=== PATIENT | male | born 1945 | race Caucasian/White ===

== ENCOUNTER 2023-07-05 02:29 | Inpatient (IN) | payer MEDICARE, OTHER ==
[2023-07-05] VITALS (10 sets, daily range): BP systolic 137–163; BP diastolic 83–98; TEMP 97.3–98.4; O2SAT 94–99
[~2023-07-05] VITALS: Ht 157.5 cm; Wt 57.6 kg
[2023-07-05] MEDS ORDERED: methylPREDNISolone SOD SUCC 125 MG/2ML VIAL ONE (02:41)
[2023-07-05] MEDS: methylPREDNISolone SOD SUCC 125 MG/2ML VIAL IV ONE (02:46)
[2023-07-05] MEDS: ALBUTEROL FS 2.5 MG/3 ML VIAL.NEB NEB ONE (02:52)
[2023-07-05 02:57] LABS: BASOPHILS % (AUTO) 0.3 % (0.0-2.0); EOSINOPHILS # (AUTO) 0.1 K/uL (0.0-0.7); EOSINOPHILS % (AUTO) 2.5 % (0.0-6.0); HEMATOCRIT 42 % (39-51); HEMOGLOBIN 13.7 g/dL (13.5-17.5); LYMPHOCYTES % (AUTO) 49.3 % (20.0-44.0); MEAN CORPUSCULAR HEMOGLOBIN 30 PG (26.0-33.0); MEAN CORPUSCULAR HGB CONC 33 g/dl (31.0-36.0); MEAN CORPUSCULAR VOLUME 93 fL (80-96); MONOCYTES # (AUTO) 0.5 K/uL (0.1-1.30); MONOCYTES % (AUTO) 11.8 % (2.0-12.0); NEUTROPHILS # (AUTO) 1.5 K/uL (1.8-8.9); NEUTROPHILS % (AUTO) 36.1 % (43.0-81.0); PLATELET COUNT (AUTO) 201 K/uL (150-450); RED BLOOD CELL COUNT(AUTO) 4.52 MIL/uL (4.5-6.0); RED CELL DISTRIBUTION WIDTH 15.3 % (11.5-15.0)
[2023-07-05 03:17] LABS: LACTIC ACID 1.5 mmol/L (0.4-2.0)
[2023-07-05 03:22] LABS: ALBUMIN 3.5 g/dL (3.4-5.0); BILIRUBIN,TOTAL 0.4 mg/dL (0.2-1.0); CALCIUM, SERUM 8.5 mg/dL (8.5-10.1); CREATININE 0.9 mg/dL (0.6-1.3); POTASSIUM 3.5 mmol/L (3.5-5.1); TOTAL PROTEIN, SERUM 6.9 g/dL (6.4-8.2)
[2023-07-05 04:24] LABS: ABG BASE EXCESS -3.2 mmol/L; ABG OXYGEN SATURATION 91.7 % (92.0-98.5); ABG PH 7.427 (7.350-7.450); ABG PO2 60.5 mmHg (75.0-100.0); ABG TOTAL HEMOGLOBIN 14.6 G/dL (13.5-18.0); MetHb 0.2 % (0.0-1.5); O2Hb 91.5 % (94.0-97.0); SITE, ABG Left Radial; VENT MODE, BG Bipap 15/5 40% RR16
[2023-07-05] MEDS ORDERED: ACETAMINOPHEN 325 MG TABLET PO PRN (06:30)
[2023-07-05] MEDS ORDERED: hydrALAZINE HCL IV 20 MG VIAL IV PRN (06:30)
[2023-07-05] MEDS ORDERED: ONDANSETRON HCL/PF 4 MG/2 ML VIAL IVP PRN (06:30)
[2023-07-05] MEDS ORDERED: ALBUTEROL FS 2.5 MG/0.5 ML VIAL.NEB NEB PRN (06:30)
[2023-07-05] MEDS ORDERED: IV NS 0.9% 250 ML IV ONE (06:37)
[2023-07-05] MEDS ORDERED: CT SWABBABLE VALVE TRANS SET 1 EA INFUS.SET MC ONE (06:37)
[2023-07-05] MEDS ORDERED: IOHEXOL-350 100 ML VIAL IV ONE (06:37)
[2023-07-05] MEDS: ALBUTEROL FS 2.5 MG/0.5 ML VIAL.NEB NEB SCH (07:35)
[2023-07-05] MEDS: IPRATROPIUM NEB FS 0.5 MG/2.5 ML AMPUL.NEB NEB SCH (07:35)
[2023-07-05 08:01] LABS: LACTIC ACID 2.1 mmol/L (0.4-2.0)
[2023-07-05] MEDS: CEFTRIAXONE 1 G in IV D5W 50 ML IV SCH (08:15)
[2023-07-05] MEDS: ZITHROMAX 500 MG/250 ML D5W IV SCH (08:45)
[2023-07-05] MEDS ORDERED: HEPARIN SODIUM, PORCINE 5000 UNITS/1 ML VIAL SQ SCH (09:00)
[2023-07-05] MEDS: ENOXAPARIN SODIUM 40 MG/0.4 ML DISP.SYRIN SQ SCH (09:00)
[2023-07-05] MEDS ORDERED: AZITHROMYCIN 500 MG in IV D5W 250 ML IV SCH (09:00)
[2023-07-05] MEDS ORDERED: ASPI-1420 PO (10:55)
[2023-07-05] MEDS ORDERED: NITR0.4T48 SL (10:55)
[2023-07-05] MEDS ORDERED: AMIT10TA6 PO (10:55)
[2023-07-05] MEDS ORDERED: PLEC3TAB PO (10:55)
[2023-07-05] MEDS ORDERED: VERA40TA5 PO (10:55)
[2023-07-05] MEDS ORDERED: TAMS-12 PO (10:55)
[2023-07-05] MEDS ORDERED: GABA-532 PO (10:55)
[2023-07-05] MEDS ORDERED: UMEC1BLS IH (10:55)
[2023-07-05] MEDS ORDERED: DONE5TAB34 PO (10:55)
[2023-07-05] MEDS ORDERED: ALBU18HF2 IH (10:55)
[2023-07-05] MEDS ORDERED: ZOLP10TA2 PO (10:55)
[2023-07-05] MEDS ORDERED: ESOM40CA PO (10:55)
[2023-07-05] MEDS ORDERED: ATOR20TA PO (10:55)
[2023-07-05] MEDS ORDERED: MELO-105 PO (10:55)
[2023-07-05] MEDS ORDERED: LEVO25TA9 PO (10:55)
[2023-07-05] MEDS ORDERED: EZET10TA16 PO (10:55)
[2023-07-05] MEDS: MORPHINE SULFATE INJ 2 MG/ML DISP.SYRIN IV PRN (18:59)
[2023-07-05] MEDS: TRAZODONE 50 MG TABLET PO SCH (23:34)
[2023-07-06] VITALS (9 sets, daily range): BP systolic 127–137; BP diastolic 72–80; TEMP 97.7–98; O2SAT 93–98
[2023-07-06] MEDS: methylPREDNISolone SOD SUCC 40 MG/ML VIAL IV SCH (06:06)
[2023-07-06 07:03] LABS: HEMATOCRIT 40 % (39-51); HEMOGLOBIN 13.2 g/dL (13.5-17.5); LYMPHOCYTES # (AUTO) 1.1 K/uL (0.8-4.8); LYMPHOCYTES % (AUTO) 19.2 % (20.0-44.0); MEAN CORPUSCULAR HEMOGLOBIN 31 PG (26.0-33.0); MEAN CORPUSCULAR HGB CONC 33 g/dl (31.0-36.0); MEAN CORPUSCULAR VOLUME 92 fL (80-96); MONOCYTES # (AUTO) 0.6 K/uL (0.1-1.30); MONOCYTES % (AUTO) 10.5 % (2.0-12.0); NEUTROPHILS % (AUTO) 70.3 % (43.0-81.0); PLATELET COUNT (AUTO) 212 K/uL (150-450); RED BLOOD CELL COUNT(AUTO) 4.33 MIL/uL (4.5-6.0); RED CELL DISTRIBUTION WIDTH 14.9 % (11.5-15.0); WHITE BLOOD COUNT (AUTO) 5.8 K/uL (4.3-11.0)
[2023-07-06 08:03] LABS: ALANINE AMINOTRANSFERASE 42 U/L (12-78); ALKALINE PHOSPHATASE 44 U/L (46-116); ASPARTATE AMINOTRANSFERASE 49 U/L (15-37); BILIRUBIN,TOTAL 0.5 mg/dL (0.2-1.0); CALCIUM, SERUM 8.6 mg/dL (8.5-10.1); CARBON DIOXIDE 27 mmol/L (21-32); CHLORIDE 107 mmol/L (98-107); CREATININE 0.8 mg/dL (0.6-1.3); GLUCOSE 140 mg/dL (74-106); MAGNESIUM 2.3 mg/dL (1.8-2.4); PHOSPHORUS 3.9 mg/dL (2.5-4.9); POTASSIUM 4.1 mmol/L (3.5-5.1); SODIUM SERUM 142 mmol/L (136-145); TOTAL PROTEIN, SERUM 6.3 g/dL (6.4-8.2); UREA NITROGEN, BLOOD 9 mg/dL (7-18)
[2023-07-06] MEDS ORDERED: ALBUTEROL FS 2.5 MG/0.5 ML VIAL.NEB NEB PRN (13:00)
[2023-07-06] MEDS ORDERED: METH4TAB3 PO (17:30)
[2023-07-06] MEDS ORDERED: ALBU8.5H8 INH (17:30)
[2023-07-06] MEDS ORDERED: AZIT500T PO (17:30)
[2023-07-07] MEDS ORDERED: AZITHROMYCIN 250 MG TABLET PO SCH (08:00)
== END 2023-07-06 18:07 | disposition home or self-care (01) | DRG 190 ==
LOC: ER 02:38 → TELE1 09:47 → TELE-TD 11:02
PROVIDERS: ADMIT Nurse Practitioner Acute Care; ATTEND Nurse Practitioner Acute Care
PROC: 5A09357 Assistance with Respiratory Ventilation, Less than 24 Consecutive Hours, Continuous Positive Airway Pressure (ICD-10-PCS; principal; 2023-07-05)
DX: J44.1 Chronic obstructive pulmonary disease with (acute) exacerbation (principal); J96.01 Acute respiratory failure with hypoxia; I25.10 Atherosclerotic heart disease of native coronary artery without angina pectoris; Z20.822 Contact with and (suspected) exposure to COVID-19; Z95.1 Presence of aortocoronary bypass graft; Z95.5 Presence of coronary angioplasty implant and graft; I10 Essential (primary) hypertension; E78.5 Hyperlipidemia, unspecified; E03.9 Hypothyroidism, unspecified; N40.0 Benign prostatic hyperplasia without lower urinary tract symptoms; E66.9 Obesity, unspecified; Z68.30 Body mass index [BMI] 30.0-30.9, adult; Z87.891 Personal history of nicotine dependence; Z79.51 Long term (current) use of inhaled steroids; Z79.82 Long term (current) use of aspirin; Z79.890 Hormone replacement therapy; J45.909 Unspecified asthma, uncomplicated
CPT/HCPCS: 36415; 36600; 71045-TC; 80053-TC; 82248-TC; 83605-TC; 83735-TC; 83880; 84100-TC; 84484-TC; 85025-TC; 87040-TC; 93307-TC; 94799-TC; A4223; G0378; J0456; J0696; J1650; J2270; J2920; J2930; J7040; J7050; J7060; Q9967